=== PATIENT | male | born 1970 | race Caucasian/White ===

== ENCOUNTER 2019-02-13 10:11 | Outpatient (REF) | payer OTHER, SELFPAY ==
[2019-02-13 19:09] LABS: Calculated LDL 113 mg/dL; Cholesterol 183 mg/dL (50-200); HDL Cholesterol 43 mg/dL (40-60); Triglyceride 136 mg/dL (30-150)
[2019-02-13 19:21] LABS: Hemoglobin A1C 6.4 % (4.5-6.2)
== END 2019-02-13 10:31 ==
LOC: NCHCN 10:11
PROVIDERS: PCP Physician Assistant; Visit Provider Nurse Practitioner Family
DX: Z13.1 Encounter for screening for diabetes mellitus (principal); Z13.220 Encounter for screening for lipoid disorders
CPT/HCPCS: 80061; 83036

== ENCOUNTER 2019-03-13 12:33 | Outpatient (REF) | payer OTHER, SELFPAY ==
[2019-03-13 19:53] LABS: Anion Gap 11.9 mmol/L (3-11); BUN 18 mg/dL (7-18); CO2 24.1 mmol/L (21.0-32.0); CREATININE 0.99 mg/dL (0.70-1.30); Calcium 9.1 mg/dL (8.5-10.1); Chloride 105 mmol/L (98-107); Glucose 149 mg/dL (74-106); Potassium 4.2 mmol/L (3.5-5.1); Sodium 141 mmol/L (136-145)
== END 2019-03-13 12:53 ==
LOC: NCHCN 12:33
PROVIDERS: PCP Physician Assistant; Visit Provider Nurse Practitioner Family
DX: R73.09 Other abnormal glucose (principal)
CPT/HCPCS: 80048

== ENCOUNTER 2019-05-24 08:45 | Outpatient (REF) | payer OTHER, SELFPAY ==
[2019-05-24 21:14] LABS: Creatine Kinase 83 U/L (39-308)
[2019-05-24 21:25] LABS: ESR 10 mm/hr (0-15)
[2019-05-26 14:14] LABS: ANA Interpretation Negative (Negative)
== END 2019-05-24 09:05 ==
LOC: NCHCN 08:45
PROVIDERS: PCP Nurse Practitioner Family; Visit Provider Nurse Practitioner Family
DX: M79.10 Myalgia, unspecified site (principal)
CPT/HCPCS: 82550; 85652; 86038

== ENCOUNTER 2020-01-30 21:02 | Outpatient (REF) | payer OTHER, SELFPAY ==
[2020-01-30 19:34] LABS: HCT 42.5 % (40.0-50.0); HGB 14.5 g/dL (13.5-17.5); MCH 30.1 pg (27.0-33.0); MCHC 34.1 % (32.0-36.0); MCV 88.2 fL (80-95); MPV 9.7 fL (8.0-11.0); Platelet Count 284 10^3/uL (130-400); RBC 4.82 10^6/uL (4.36-5.78); RDW 12.2 % (11.8-14.1); RDW-SD 39.8 fL; WBC 5.67 10^3/uL (4.4-10.8)
[2020-01-30 19:39] LABS: Iron 83 ug/dL (65-175); Total Iron Binding Capacity 277 ug/dL (250-450); Transferrin Sat 30 % (20-55)
[2020-01-30 20:06] LABS: ALT 30 U/L (16-63); AST 19 U/L (15-37); Albumin 4.2 g/dL (3.4-5.0); Alkaline Phosphatase 77 U/L (46-116); Anion Gap 8.3 mmol/L (3-11); BUN 17 mg/dL (7-18); Bilirubin, Total 0.7 mg/dL (0.2-1.0); CO2 28.7 mmol/L (21.0-32.0); CREATININE 0.99 mg/dL (0.70-1.30); Calcium 9.3 mg/dL (8.5-10.1); Chloride 104 mmol/L (98-107); Ferritin 251 ng/mL (26-388); Glucose 105 mg/dL (74-106); Magnesium 1.8 mg/dL (1.8-2.4); Potassium 4.1 mmol/L (3.5-5.1); Sodium 141 mmol/L (136-145); TSH (W/Ref FT4) 1.79 uIU/mL (0.36-3.74); Vitamin B12 364 pg/mL (193-986)
[2020-02-01 04:29] LABS: Vitamin D 25 Total 23.9 ng/ml (30-100)
[2020-02-01 09:29] LABS: Lyme Ab w Rflx to Lyme Confirm Negative (Negative)
== END 2020-01-30 21:22 ==
LOC: NCHCN 21:02
PROVIDERS: PCP Nurse Practitioner Family; Visit Provider Nurse Practitioner Family
DX: R53.83 Other fatigue (principal); R59.1 Generalized enlarged lymph nodes
CPT/HCPCS: 80053; 82306; 85027; 82607; 82728; 83540; 83550; 83735; 84443; 86618

== ENCOUNTER 2020-07-09 13:41 | Outpatient (REF) | payer OTHER, SELFPAY ==
[2020-07-09 20:00] LABS: Anion Gap 12.5 mmol/L (3-11); BUN 18 mg/dL (7-18); CO2 25.5 mmol/L (21.0-32.0); CREATININE 0.9 mg/dL (0.70-1.30); Calcium 9.7 mg/dL (8.5-10.1); Chloride 103 mmol/L (98-107); Glucose 86 mg/dL (74-106); Sodium 141 mmol/L (136-145)
[2020-07-09 20:09] LABS: Hemoglobin A1C 5.9 % (<5.7)
== END 2020-07-09 13:42 | disposition home or self-care (01) ==
LOC: NCHCN 13:41
PROVIDERS: PCP Nurse Practitioner Family; Visit Provider Physician Assistant
DX: R73.03 Prediabetes (principal)
CPT/HCPCS: 80048; 83036

== ENCOUNTER 2020-10-07 11:23 | Outpatient (REF) | payer OTHER, SELFPAY ==
[2020-10-08 17:02] LABS: PSA, Screening 0.6 ng/mL (0.0-3.5)
== END 2020-10-07 11:24 | disposition home or self-care (01) ==
LOC: NCHCN 11:23
PROVIDERS: PCP Nurse Practitioner Family; Visit Provider Nurse Practitioner Family
DX: Z12.5 Encounter for screening for malignant neoplasm of prostate (principal)
CPT/HCPCS: 84153

== ENCOUNTER 2021-08-13 20:07 | Outpatient (REF) | payer OTHER, SELFPAY ==
[2021-08-13 20:27] LABS: ALT 32 U/L (16-63); AST 22 U/L (15-37); Albumin 4.4 g/dL (3.4-5.0); Alkaline Phosphatase 88 U/L (46-116); Anion Gap 5.5 mmol/L (3-11); BUN 18 mg/dL (7-18); Bilirubin, Total 0.8 mg/dL (0.2-1.0); CO2 29.5 mmol/L (21.0-32.0); Calcium 10.2 mg/dL (8.5-10.1); Chloride 107 mmol/L (98-107); Glucose 131 mg/dL (74-106); Hemoglobin A1C 5.9 % (<5.7); Potassium 4.5 mmol/L (3.5-5.1); Sodium 142 mmol/L (136-145); Total Protein 8.4 g/dL (6.4-8.2)
== END 2021-08-13 20:08 | disposition home or self-care (01) ==
LOC: NCHCN 20:07
PROVIDERS: PCP Nurse Practitioner Family; Visit Provider Nurse Practitioner Family
DX: R73.03 Prediabetes (principal)
CPT/HCPCS: 80053; 83036

== ENCOUNTER 2022-07-15 08:27 | Outpatient (REF) | payer OTHER, SELFPAY ==
[2022-07-22 05:51] LABS: O-desmethyltramadol 20273 ng/mL (Cutoff:25); Tramadol 19280 ng/mL (Cutoff:25)
== END 2022-07-15 08:28 | disposition home or self-care (01) ==
LOC: NCHCN 08:27
PROVIDERS: PCP Nurse Practitioner Family; Visit Provider Nurse Practitioner Family
DX: M79.7 Fibromyalgia (principal); G89.29 Other chronic pain; Z51.81 Encounter for therapeutic drug level monitoring; Z79.899 Other long term (current) drug therapy
CPT/HCPCS: 80373

== ENCOUNTER 2022-08-17 15:08 | Outpatient (REF) | payer OTHER, SELFPAY ==
[2022-08-17 20:32] LABS: Anion Gap 7.8 mmol/L (3-11); BUN 14 mg/dL (7-18); CO2 27.2 mmol/L (21.0-32.0); CREATININE 1.1 mg/dL (0.70-1.30); Calcium 9.3 mg/dL (8.5-10.1); Chloride 109 mmol/L (98-107); Estimated GFR 80.77 (mL/min/1.73m2); Glucose 118 mg/dL (74-106); Potassium 4.4 mmol/L (3.5-5.1); Sodium 144 mmol/L (136-145)
== END 2022-08-17 15:09 | disposition home or self-care (01) ==
LOC: NCHCN 15:08
PROVIDERS: PCP Nurse Practitioner Family; Visit Provider Nurse Practitioner Family
DX: R73.03 Prediabetes (principal)
CPT/HCPCS: 80048

== ENCOUNTER 2022-11-16 11:40 | Outpatient (REF) | payer MEDICAID, SELFPAY ==
[2022-11-16 19:14] LABS: ESR 11 mm/hr (0-20)
[2022-11-16 19:39] LABS: Hemoglobin A1C 5.9 % (<5.7)
[2022-11-16 19:40] LABS: ALT 31 U/L (16-63); AST 25 U/L (15-37); Albumin 3.8 g/dL (3.4-5.0); Alkaline Phosphatase 81 U/L (46-116); Anion Gap 8.2 mmol/L (3-11); BUN 17 mg/dL (7-18); Bilirubin, Total 0.8 mg/dL (0.2-1.0); C-Reactive Protein 0.38 mg/dL (0.0-0.3); CO2 27.8 mmol/L (21.0-32.0); CREATININE 1.1 mg/dL (0.70-1.30); Calcium 9.2 mg/dL (8.5-10.1); Chloride 104 mmol/L (98-107); Estimated GFR 80.77 (mL/min/1.73m2); Glucose 112 mg/dL (74-106); Potassium 4.4 mmol/L (3.5-5.1); Sodium 140 mmol/L (136-145); Total Protein 7.7 g/dL (6.4-8.2)
[2022-11-17 17:50] LABS: Rheumatoid Factor <8.6 IU/mL (<12.0)
[2022-11-18 11:46] LABS: Lyme Ab w Rflx to Lyme Confirm Negative (Negative)
[2022-11-18 14:36] LABS: ANA Interpretation Negative (Negative)
[2022-11-20 12:26] LABS: Anaplasma phagocytophilum Negative (Negative); B. miyamotoi PCR Negative (Negative); Babesia divergens/MO-1 Negative (Negative); Babesia duncani Negative (Negative); Babesia microti Negative (Negative); Ehrlichia chaffeensis Negative (Negative); Ehrlichia ewingii/canis Negative (Negative); Ehrlichia muris eauclairensis Negative (Negative)
== END 2022-11-16 11:41 | disposition home or self-care (01) ==
LOC: NCHCN 11:40
PROVIDERS: PCP Nurse Practitioner Family; Visit Provider Nurse Practitioner Family
DX: R73.03 Prediabetes (principal); M79.7 Fibromyalgia; M25.59 Pain in other specified joint; Z01.84 Encounter for antibody response examination; Z11.8 Encounter for screening for other infectious and parasitic diseases; R79.82 Elevated C-reactive protein (CRP)
CPT/HCPCS: 80053; 85652; 87798; 83036; 86038; 86140; 86431; 86618

== ENCOUNTER 2022-12-17 10:43 | Outpatient (REF) | payer MEDICAID, SELFPAY ==
[2022-12-23 07:25] LABS: Tramadol 37030 ng/mL (Cutoff:25)
== END 2022-12-17 10:44 | disposition home or self-care (01) ==
LOC: NCHCN 10:43
PROVIDERS: PCP Nurse Practitioner Family; Visit Provider Nurse Practitioner Family
DX: G89.29 Other chronic pain (principal)
CPT/HCPCS: 80373

== ENCOUNTER 2023-07-07 13:47 | Outpatient (CLI) | payer MEDICAID, SELFPAY ==
[2023-07-07 22:29] LABS: PSA, Screening 0.4 ng/mL (<=3.5)
== END 2023-07-07 13:48 | disposition home or self-care (01) ==
LOC: LBO 13:47
PROVIDERS: PCP Nurse Practitioner Family; Visit Provider Nurse Practitioner Gerontology
DX: N40.1 Benign prostatic hyperplasia with lower urinary tract symptoms (principal); R39.89 Other symptoms and signs involving the genitourinary system; Z12.5 Encounter for screening for malignant neoplasm of prostate
CPT/HCPCS: 36415; 84153

== ENCOUNTER 2023-12-27 13:31 | Outpatient (REF) | payer MEDICAID, SELFPAY ==
[2023-12-31 11:14] LABS: O-desmethyltramadol 14608 ng/mL (Cutoff:25)
== END 2023-12-27 13:32 | disposition home or self-care (01) ==
LOC: NCHCN 13:31
PROVIDERS: PCP Nurse Practitioner Family; Visit Provider Nurse Practitioner Family
DX: G89.29 Other chronic pain (principal)
CPT/HCPCS: 80373

== ENCOUNTER 2023-12-29 15:49 | Outpatient (REF) | payer MEDICAID, SELFPAY ==
[2023-12-29 20:26] LABS: ALT 34 U/L (16-63); AST 26 U/L (15-37); Albumin 3.7 g/dL (3.4-5.0); Alkaline Phosphatase 76 U/L (46-116); Anion Gap 5.4 mmol/L (3-11); BUN 16 mg/dL (7-18); Bilirubin, Total 0.71 mg/dL (0.2-1.0); CO2 29.6 mmol/L (21.0-32.0); Calcium 9.2 mg/dL (8.5-10.1); Calculated LDL 99 mg/dL (<100); Chloride 105 mmol/L (98-107); Cholesterol 158 mg/dL (<200); Glucose 103 mg/dL (74-106); HDL Cholesterol 47 mg/dL (40-60); Potassium 4.5 mmol/L (3.5-5.1); Sodium 140 mmol/L (136-145); Total Protein 7.7 g/dL (6.4-8.2); Triglyceride 61 mg/dL (<150)
== END 2023-12-29 15:50 | disposition home or self-care (01) ==
LOC: NCHCN 15:49
PROVIDERS: PCP Nurse Practitioner Family; Visit Provider Nurse Practitioner Family
DX: R73.03 Prediabetes (principal); Z13.220 Encounter for screening for lipoid disorders
CPT/HCPCS: 80053; 80061

== ENCOUNTER 2025-01-02 15:06 | Outpatient (REF) | payer MEDICAID, SELFPAY ==
[2025-01-02 19:53] LABS: ALT 35 U/L (16-63); AST 29 U/L (15-37); Albumin 3.5 g/dL (3.4-5.0); Alkaline Phosphatase 82 U/L (46-116); Anion Gap 7.6 mmol/L (3-11); BUN 16 mg/dL (7-18); Bilirubin, Total 0.8 mg/dL (0.2-1.0); CO2 27.4 mmol/L (21.0-32.0); Calcium 8.8 mg/dL (8.5-10.1); Chloride 107 mmol/L (98-107); Estimated GFR 79.77 (mL/min/1.73m2); Glucose 137 mg/dL (74-106); Potassium 4.2 mmol/L (3.5-5.1); Sodium 142 mmol/L (136-145); Total Protein 7.2 g/dL (6.4-8.2)
== END 2025-01-02 15:07 | disposition home or self-care (01) ==
LOC: NCHCN 15:06
PROVIDERS: PCP Nurse Practitioner Family; Visit Provider Nurse Practitioner Family
DX: R73.03 Prediabetes (principal)
CPT/HCPCS: 80053

== ENCOUNTER 2025-03-12 13:37 | Outpatient (REF) | payer MEDICAID, SELFPAY ==
[2025-03-13 20:28] LABS: HIV-1/2 Ag & Ab Screen Negative (Negative)
[2025-03-13 20:32] LABS: Hepatitis C Ab w Rflx HCV PCR Negative (Negative)
[2025-03-14 11:06] LABS: Syphilis Serology (RPR) Positive (Negative)
[2025-03-14 11:56] LABS: Chlamydia Result Negative (Negative); GC Result Negative (Negative)
[2025-03-16 10:45] LABS: RPR w/Reflex Negative (Negative)
[2025-03-19 08:18] LABS: Syphilis Ab, TP-PA Positive (Negative)
== END 2025-03-12 13:38 | disposition home or self-care (01) ==
LOC: NCHCN 13:37
PROVIDERS: PCP Nurse Practitioner Family; Visit Provider Nurse Practitioner Family
DX: Z11.59 Encounter for screening for other viral diseases (principal)
CPT/HCPCS: 0064U; 86780; 86803; 87389; 87491; 87591; 86592